=== PATIENT | female | born 1975 | race Caucasian/White ===

== ENCOUNTER 2017-04-04 09:32 | Emergency (ER) | payer OTHER ==
[~2017-04-04] VITALS: Ht 177.8 cm; Wt 109.1 kg
[~2017-04-04 09:32] MED LIST: PROZ20 PO
[2017-04-04 09:35] VITALS: BP 141/94; PULSE 91; RESP 14; O2SAT 98
--- NOTE | 2017-04-04 09:42 | ED.REPORT ---
HPI-Extremity Problem Lower Date of Service April 04, 2017 ED Provider: Faustino Rain MD Patient is a 41 year old female with history of depression who presents to [facility] ED complaining of right foot pain. She states she had pain and swelling around second and third proximal phalanges for a few weeks. No history of injury or trauma. 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 Patient has been in a boot for two weeks which somewhat helped with the discomfort. She also had a cortison shot a few days ago. Last night patient twisted the foot at home around 6 pm. She reports pain since then 09/01 if she tries to put weight on it. She took 3 Advils last night and this morning for pain relief. She denies numbness, loss of sensation, weakness, loss of motor function in her right foot. Nursing Notes Stated Complaint: POSS RT BROKEN FOOT Chief Complaint: Extremity Trauma Allergies: Uncoded Allergies: bacitracin and possibly other topical antibiotics (Allergy, Intermediate, ) Scheduled FLUoxetine-Expunged Drug, Do not Renew! (Prozac-Expunged Drug, Do not Renew!) 20 Mg Cap 20 MG PO DAILY General Time Seen by MD: 09:42 Chief Complaint Foot injury right Hx Obtained From: Patient Arrived By: Walk-in Onset Occurred: 13 - 16 hours ago Symptom Duration: Since onset Caused by: Accidental Context: Occurred at: Home injury Location: : Foot right Quality: Aching Severity: Current: Moderate Severity: Maximum: Severe Associated with: Reports: Swelling Pertinent Negative: Pt denies other symptoms Exacerbated by: Range of motion Relieved by: OTC medications, Rest Immunizations: All up to date Recent Healthcare: Recent doctor visit (Dr. Arzate, button tufting machine operator) Risk-Extremity Prob Lower Well's Criteria for DVT Well's DVT Score: 0 pts (low risk 5%) Past Medical History Past Medical History Notes: Depression Past Surgical History None reported Smoking History Light Tobacco Smoker Social History Alcohol Use: "Social" Drug Use: Denies drug use Ambulatory Status Independent Review of Systems Basic Review of Systems Eyes: Vision NL ENT: Hearing NL Respiratory: No cough, No wheeze Cardiovascular: No dyspnea on exertion GI: No abdominal pain : No dysuria Psychiatric: Normal thought content Constitutional: Denies: Chills, Fatigue, Fever Musculoskeletal: Reports: Extremity pain (Right foot) Skin: Reports Swelling (Right foot), Denies Rash GI: Denies: Abdominal pain Hematologic: Denies Bruising Psychiatric: Denies: Agitation, Anxiety Physical Exam Initial Vital Signs Vital Signs (First) Date Time Temp Pulse Resp B/P Pulse Ox O2 Delivery O2 Flow Rate FiO2 04/04/17 09:35 36.4 91 14 141/94 98 Room Air Initial VS: Reviewed, Vital signs normal General/Constitutional: Well-developed, Well-nourished Head / Eyes: Atraumatic, Normocephalic ENT: Mucous membranes moist, Conjunctiva normal Neck: Supple, Non-tender, Full range of motion Respiratory: Breath sounds normal, Clear to auscultation Cardiovascular: Regular rate & rhythm, Heart sounds normal Upper Extremities: Vascular intact, Neuro intact, No swelling, No tenderness Skin: Warm, Dry, No cyanosis Neurologic: Alert, Oriented Psychiatric: Mood/affect normal, Behavior normal Lower Ext Brief Normals: Foot L exam normal Mild swelling around second and third proximal phalanges, 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 Right foot X-ray revealed no acute fracture. Patient will be discharged home with the instructions to follow up with Dr. Arzate. Diffrential diagnosis includes but not limited to sprain, strain, day neuroma, stress fracture Severity: Non life-threatening Counseled Regarding: Diagnosis, Need for follow-up, When/why to return to ED Discharge & Departure Impression: Primary Impression: Foot pain, right Disposition: Home Discharge Condition Condition: Stable Additional Instructions: Thank you for seeking care at emergency room today. Your evaluation today is reassuring! Right foot x-ray did not reveal any fractures. You might have a strain, sprain or Day's neuroma. Please follow up with Dr. Arzate, continue taking Ibuprofen for pain and apply cold compresses for 20 minutes a few times a day if needed. Physical activity as tolerated. You should return to emergency room if your symptoms worsen. Thank you for letting us partake in your care today. Referrals: Jagdish Cifuentes MD (PCP) EDSupervising Provider for APC: Faustino Rain MD Attending Statement Discussed patient with resident. I evaluated patient independently and agree with plan as above. In brief, 41-year-old female seen by podiatry placed in a walking boot two weeks ago for possible stress fractures. She reports she twisted her right foot last night and now with right foot pain. She has no bony tenderness. Diffuse tenderness over right dorsal foot distally. She is neurovascularly intact. X-ray shows no fracture. Recommend continuing walking boot, crutches, weightbearing as tolerated, rice and follow-up with podiatry primary doctor next week. Return precautions given. copies to: Jeremy Mcgee MD, Ben M MD April 04, 2017 09:42 Ruby Batista DO April 04, 2017 10:01
[2017-04-04 10:42] VITALS: BP 138/82; PULSE 88; RESP 16; O2SAT 98
--- NOTE | 2017-04-04 10:51 | DRSVH ---
PROCEDURE: X-RAY RIGHT FOOT COMPLETE, MINIMUM THREE VIEWS ([id number]) INDICATIONS: Twist injury; possible Fx TECHNIQUE: 3 views of the foot were acquired. COMPARISON: CHRISS Slater, FOOT COMP MIN 3VW (RT), 10/05/2013, 16:01. FINDINGS: Bones: No fractures or dislocations. No suspicious bony lesions. Prominent plantar calcaneal spur. There is mild posterior calcaneal spurring. Injection fixation of the distal first metatarsal and se quela of prior bunionectomy Soft tissues: No tibiotalar joint effusion. Achilles tendon appears normal. IMPRESSION: No fracture. Postsurgical and chronic degenerative changes as above Dictated by: Devon Thompson M.D. on 04/04/2017 at 10:48 Approved by: Devon Thompson M.D. on 04/04/2017 at 10:50
== END 2017-04-04 10:43 | disposition home or self-care (01) ==
LOC: SED 09:32
DX: M79.671 Pain in right foot (principal); X50.9XXA Other and unspecified overexertion or strenuous movements or postures, initial encounter; Y93.9 Activity, unspecified; Y92.009 Unspecified place in unspecified non-institutional (private) residence as the place of occurrence of the external cause; Y99.8 Other external cause status; F17.200 Nicotine dependence, unspecified, uncomplicated